=== PATIENT | female | born 1955 | race Caucasian/White ===

== ENCOUNTER 2016-08-23 14:39 | Emergency (ER) | payer MEDICARE, OTHER ==
[~2016-08-23] VITALS: Ht 170.2 cm; Wt 100.9 kg
[2016-08-23 14:42] VITALS: BP 116/50; PULSE 64; RESP 16; O2SAT 100
--- NOTE | 2016-08-23 15:15 | ED.REPORT ---
HPI-General Illness Date of Service Aug 23, 2016 ED Provider: Dr. Arguelles Pt is a 61 y/o female w/ a hx of CAD s/p stents x2, frequent PVCs and PACs, presenting to the ED c/o irregular palpitations onset today. She has felt similar palpitations previously and has no history of atrial fibrillation. Pt reports she has not been feeling well today including symptoms of generalized weakness, dizziness, SOB. She reports cold-like symptoms for 1 week. She denies CP, fever, chills, abdominal pain, N/V/D. She went to Urgent Care earlier today and was told to come here for observation and possible cardiac workup. She was recently switched to Losartan from Metoprolol. Nursing Notes Stated Complaint: SHORT OF BREATH Chief Complaint: Dysrhythmia/Cardiac Nursing Notes Reviewed: Yes Allergies: Coded Allergies: clopidogrel (Verified Allergy, Mild, rash, 08/23/16) hydrocodone (Verified Allergy, Mild, rash, 08/23/16) latex (Verified Allergy, Mild, skin sensitivity, 08/23/16) lisinopril (Verified Allergy, Mild, cough, 08/23/16) insulin detemir (Verified Allergy, Unknown, HTN, 08/23/16) General Time Seen by MD: 15:15 Chief Complaint Other (Palpitations) Hx Obtained From: Patient Arrived By: Walk-in Sudden in Onset?: No Onset Occurred: 9 - 12 hours ago Symptom Duration: Since onset Severity: Current: No pain currently Severity: Maximum: No pain Similar Sx Previous: Yes Past Medical History 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 Physical Exam Vital Signs Initial VS: Reviewed Head / Eyes: Atraumatic, Normocephalic, PERRL ENT: Mucous membranes moist, Conjunctiva normal, No scleral icterus Neck: Supple, Full range of motion Respiratory: Breath sounds normal, Clear to auscultation, No respiratory distress Abdomen / GI: Soft, Non-tender Extremities: Vascular intact, Neuro intact, No swelling, No tenderness Skin: Warm, Dry, No cyanosis Neurologic: Alert, Oriented, Nonfocal Psychiatric: Mood/affect normal, Behavior normal, Normal thought content General/Constitutional: Awake, Alert, No acute distress, Well appearing, Cooperative, Not toxic appearing Cardiovascular: Heart rate NL, Regular rhythm, Heart sounds NL, No gallop, No murmurs, No rubs, Cap refill not delayed, Peripheral circulation NL Interpretation & Diagnostics Lab Results Interpretation Test 08/23/16 16:30 08/23/16 16:59 White Blood Count 9.6th/mm3 (3.8-10.1) Red Blood Count 4.50mil/mm3 (3.90-5.20) Hemoglobin 11.8g/dL (12.0-15.6) Hematocrit 38.3% (35.0-46.0) Mean Corpuscular Volume 85.1fL (81-100) Mean Corpuscular Hemoglobin 26.2pg (27.0-35.0) Mean Corpuscular Hemoglobin Concent 30.8% (32.0-37.0) Red Cell Distribution Width 14.9% (12.3-15.4) Platelet Count 294bil/L (150-400) Neutrophils (%) (Auto) 67.0% (40-74) Lymphocytes (%) (Auto) 26.0% (14-46) Monocytes (%) (Auto) 5.6% (4-12) Eosinophils (%) (Auto) 1.0% (0-5) Basophils (%) (Auto) 0.1% (0-3) Sodium Level 144mEq/L (134-144) Potassium Level 4.6mEq/L (3.5-5.2) Chloride Level 105mEq/L (97-108) Carbon Dioxide Level 23mmol/L (18-29) Blood Urea Nitrogen 14mg/dL (8-27) Creatinine 1.03mg/dL (0.57-1.00) Estimat Glomerular Filtration Rate 78mL/min (>59) Glucose Level 193mg/dL (60-99) Calcium Level 9.4mg/dL (8.5-10.1) Magnesium Level 1.8mg/dL (1.6-2.6) Total Bilirubin 0.3mg/dL (0.0-1.2) Aspartate Amino Transf (AST/SGOT) 20U/L (0-50) Alanine Aminotransferase (ALT/SGPT) 17U/L (0-32) Alkaline Phosphatase 81U/L (25-165) Troponin T < 0.010ug/L (0.0-0.011) Pro-B-Type Natriuretic Peptide 486.6pg/mL (0-287) Total Protein 7.7g/dL (6.4-8.4) Albumin 4.1g/dL (3.4-5.0) Hold [place] Top Tube Received (Received) ECG Interpretation ECG Interpretation: Sinus rhythm rate 87 Multiple PVCs Old inferior infarct Time: 17:01 Interpreted by: ED physician Normal ECG Interpretation: No acute ischemic changes X-Ray Chest Interpretation Chest Xray Interpretation: IMPRESSION: Normal for age. Dictated by: Durga De Souza M.D. on 08/23/2016 at 16:50 Approved by: Durga De Souza M.D. on 08/23/2016 at 16:50 View: Portable, AP & lat Interpretation / Wet Read by: Interpret - Radiologist Re-Eval/Medical Decision Med Decision/Clinical Course 61-year-old female history of coronary artery disease presents with palpitations. Patient reports a recent medication switch from metoprolol to losartan. I suspect that she may be feeling/having PVCs more often since discontinuing the metoprolol. ACS has been ruled out here. Patient was reassured. She can follow up with her PCP to discuss potential medication changes. She may find some benefit from going back on metoprolol to decrease her PVCs and palpitation symptoms Counseled Regarding: Diagnosis, Lab results, Need for follow-up, When/why to return to ED Discharge & Departure Primary Impression: Premature ventricular complex Additional Impression: Palpitations Disposition: Home Discharge Condition All VS Reviewed: Yes Condition: Stable Patient Instructions: Palpitations (ED) Additional Instructions: Your EKG showed frequent PVCs with NO sign of heart attack or other ischemia. Your labs were normal. Your chest x-ray was clear. I am confident that there is nothing acutely dangerous with your heart at this time. Your symptoms may be due to you medication change but this is unclear. These palpiations are normal and not dangerous. If you notice that your heart rate is significantly fast, you should call your PCP or crude oil treater's office for recommendation. I recommend you keep your follow-up appointment with your primary care doctor to discuss today's findings. Your may want to discuss a change in medication. A cardiac stress test or a Holter monitor could be considered. For now, I recommend that you cut your Losartan dose in half until you are re- evaluated. Discuss today's visit with your crude oil treater. I have sent her a copy of my note. Return to the emergency department for persistent chest pain, trouble breathing , profuse sweating, vomiting, or other concerning signs or symptoms. Referrals: Je May DO (PCP) Radha Alonso MD Attestation Portions of this note were transcribed by Jamal Henson. I, Dr. Parnell personally performed the history, physical exam and medical decision-making; I reviewed and confirmed the accuracy of the information in the transcribed note. Signed by Joe Porter, 08/23/[id number] copies to: Je May DO; Radha Alonso MD, Gary R DO Aug 23, 2016 15:15 JAMAL HENSON Aug 23, 2016 16:22 Signed by Joe Porter, 08/23/[id number] copies to: Je May DO; Radha Alonso MD, Gary R DO Aug 23, 2016 15:15 JAMAL HENSON Aug 23, 2016 16:22
[2016-08-23 16:46] VITALS: BP 132/68; PULSE 94; RESP 15; O2SAT 96
[2016-08-23 16:49] LABS: BASOPHILS % (AUTO) 0.1 % (0-3); MONOCYTES % (AUTO) 5.6 % (4-12); Mean Corpuscular Hemoglobin 26.2 pg (27.0-35.0); Mean Corpuscular Volume 85.1 fL (81-100); Platelet Count 294 bil/L (150-400)
--- NOTE | 2016-08-23 16:51 | DRSVH ---
PROCEDURE: X-RAY CHEST, TWO VIEWS ([id number]) INDICATIONS: chest heaviness, cough TECHNIQUE: 2 views of the chest were acquired. COMPARISON: None. FINDINGS: Surgical changes and devices: None. Lungs and pleura: No pleural effusions or pneumothorax. Lungs are clear. Mediastinum: Mediastinal contours are normal. Heart size is normal. Bones and chest wall: No suspicious bony abnormalities. Soft tissues appear unremarkable. IMPRESSION: Normal for age. Dictated by: Durga De Souza M.D. on 08/23/2016 at 16:50 Approved by: Durga De Souza M.D. on 08/23/2016 at 16:50
[2016-08-23 17:55] LABS: Magnesium 1.8 mg/dL (1.6-2.6); TROPONIN T < 0.010 ug/L (0.0-0.011)
[2016-08-23 18:56] VITALS: BP 119/67; PULSE 85; RESP 16; O2SAT 96
== END 2016-08-23 18:58 | disposition home or self-care (01) ==
LOC: SED 14:39
DX: I49.3 Ventricular premature depolarization (principal); R00.2 Palpitations; E11.59 Type 2 diabetes mellitus with other circulatory complications; I25.10 Atherosclerotic heart disease of native coronary artery without angina pectoris; Z95.5 Presence of coronary angioplasty implant and graft; Z88.5 Allergy status to narcotic agent; Z88.8 Allergy status to other drugs, medicaments and biological substances; Z91.040 Latex allergy status